=== PATIENT | female | born 1995 | race Caucasian/White ===

== ENCOUNTER 2023-11-27 09:01 | Outpatient (CLI) | payer OTHER, SELFPAY | END 2023-11-27 09:02 | disposition home or self-care (01) | LOC: NFLDREF 11-30 14:42 | PROVIDERS: PCP Emergency Medicine; Referring Provider Emergency Medicine; Visit Provider Emergency Medicine | DX: R63.5 Abnormal weight gain (principal); Z68.39 Body mass index [BMI] 39.0-39.9, adult; Z13.220 Encounter for screening for lipoid disorders; Z13.228 Encounter for screening for other metabolic disorders; Z13.29 Encounter for screening for other suspected endocrine disorder | CPT/HCPCS: 80048; 80061; 84443 ==

== ENCOUNTER 2023-12-22 18:18 | Outpatient (CLI) | payer OTHER, SELFPAY | END 2023-12-22 18:19 | disposition home or self-care (01) | PROVIDERS: PCP Emergency Medicine; Visit Provider Emergency Medicine | DX: R10.31 Right lower quadrant pain (principal) | CPT/HCPCS: 80076; 86140 ==

== ENCOUNTER 2023-12-28 11:02 | Outpatient (CLI) | payer OTHER, SELFPAY ==
--- NOTE | 2023-12-28 11:15 | CRLHL7_ITS ---
For Patients: As a result of the Century Cures Act, medical imaging exams and procedure reports are released immediately into your electronic medical record. You may view this report before your referring provider. If you have questions, please contact your health care provider. INDICATION: Abdominal pain COMPARISON: none TECHNIQUE: Real time hunt scale imaging and color Doppler analysis was performed of the right upper quadrant. FINDINGS: The patient`s liver is of normal size measuring 14.2 cm and has mildly increased echogenicity. There is a normal appearance of the hepatic IVC and proximal abdominal aorta. There is no evidence of ascites. The gallbladder is of normal size and there is an echogenic and shadowing mobile stone measuring 1.2 cm. The gallbladder wall measures 1.6 mm in thickness. The common bile duct is of normal size and measures 2.7 mm in diameter at the level of the amalia hepatis. The pancreas appears normal. There is no evidence of a stone or hydronephrosis within the right kidney. The right kidney measures 12.0 cm in length. IMPRESSION: Mobile echogenic stone in the gallbladder measuring 1.2 cm. No biliary obstruction. Mild hepatic steatosis. Dictated by Donell Woody MD @ 12/28/2023 11:47:07 AM (Electronically Signed)
== END 2023-12-28 11:03 | disposition home or self-care (01) ==
LOC: US 11:03
PROVIDERS: PCP Emergency Medicine; Visit Provider Emergency Medicine
DX: R10.9 Unspecified abdominal pain (principal); K80.20 Calculus of gallbladder without cholecystitis without obstruction
CPT/HCPCS: 76705

== ENCOUNTER 2024-01-08 15:25 | Outpatient (CLI) | payer OTHER, SELFPAY ==
--- NOTE | 2024-01-08 16:00 | CRLHL7_ITS ---
For Patients: As a result of the Century Cures Act, medical imaging exams and procedure reports are released immediately into your electronic medical record. You may view this report before your referring provider. If you have questions, please contact your health care provider. Indication: Right lower quadrant pain Technique: CT through the abdomen and pelvis following 114 mL Isovue 370 IV contrast Comparison: Ultrasound performed 12/28/2023 Findings: Lower chest: Unremarkable. Hepatobiliary: No significant parenchymal abnormality is appreciated. Spleen: Unremarkable. Pancreas: Unremarkable. Adrenal glands: Unremarkable. Kidneys: No significant parenchymal abnormality appreciated. No visualized calculi. No hydronephrosis. Bowel: Small hiatal hernia. Obstruction. No focal perienteric or pericolonic stranding is appreciated. The appendix is visualized and appears unremarkable. Vascular: Unremarkable. Lymph nodes: No gross lymphadenopathy. Peritoneum: No free air. No free fluid. : IUD present. Left ovarian cyst, likely functional cyst. Soft tissues: No acute abnormality appreciated. Bones: No acute fracture. No lytic or blastic lesion. Impression: Small hiatal hernia, otherwise unremarkable examination with no abnormal findings appreciated to account for patient`s reported symptoms. Please note that all CT scans at this facility use dose modulation, iterative reconstruction, and/or weight-based dosing when appropriate to reduce radiation dose to as low as reasonably achievable. Dictated by Kobe Herr MD @ 01/12/2024 3:06:59 AM (Electronically Signed)
== END 2024-01-08 15:26 | disposition home or self-care (01) ==
LOC: CT 15:26
PROVIDERS: PCP Emergency Medicine; Visit Provider Surgery
DX: R10.31 Right lower quadrant pain (principal); K44.9 Diaphragmatic hernia without obstruction or gangrene
CPT/HCPCS: 74177; Q9967

== ENCOUNTER 2024-01-25 07:24 | Outpatient (CLI) | payer OTHER, SELFPAY ==
--- NOTE | 2024-01-25 09:14 | W.ANESCHARGE ---
Anesthesia Charges Start Date/Time Anesthesia Start Date: 01/25/24 Anesthesia Start Time: 08:27 Stop Date/Time Anesthesia Stop Date: 01/25/24 Anesthesia Stop Time: 09:10
--- NOTE | 2024-01-25 12:05 | W.ANESCHARGE ---
Anesthesia Charges Start Date/Time Anesthesia Start Date: 01/25/24 Anesthesia Start Time: 08:27 Stop Date/Time Anesthesia Stop Date: 01/25/24 Anesthesia Stop Time: 09:10
== END 2024-01-25 07:25 | disposition home or self-care (01) ==
LOC: OP CLINIC 07:25
PROVIDERS: PCP Emergency Medicine; Visit Provider Internal Medicine
DX: R10.84 Generalized abdominal pain (principal)
CPT/HCPCS: 00813; 43239; 45380; 88305; J2704

== ENCOUNTER 2024-07-27 11:27 | Outpatient (CLI) | payer OTHER, SELFPAY | END 2024-07-27 11:28 | disposition home or self-care (01) | PROVIDERS: PCP Emergency Medicine; Visit Provider Emergency Medicine | DX: E66.9 Obesity, unspecified (principal) | CPT/HCPCS: 80053; 84443 ==